=== PATIENT | male | born 1960 | race Caucasian/White ===

== ENCOUNTER 2017-02-21 12:04 | Emergency (ER) | payer OTHER ==
[~2017-02-21] VITALS: Ht 182.9 cm; Wt 90.7 kg
[2017-02-21 12:08] VITALS: BP 143/84
[2017-02-21] MEDS ORDERED: AMOXICILLIN500 M3 PO (12:34)
[2017-02-21] MEDS ORDERED: BACTRIM DS TAB1 EACH PO (12:34)
--- NOTE | 2017-02-21 12:35 | ED UPPER/LOWER EXTREMITY COMPL ---
History of Present Illness General Chief Complaint: Skin Rash/ Abcess Stated Complaint: REDNESS/SWELLING TO RT ELBOW Source: patient Exam Limitations: no limitations Vital Signs & Intake/Output Vital Signs & Intake/Output Vital Signs Date Time Temp Pulse Resp B/P B/P Pulse O2 O2 Flow FiO2 Mean Ox Delivery Rate 02/21 1208 97.1 87 20 143/84 96 Room Air Reconcile Medications Amoxicillin 500 MG TABLET 1 TAB PO TID cellulitis Atorvastatin Calcium 20 MG TABLET 1 TAB PO DAILY CHOL (Reported) Carisoprodol 350 MG TABLET 1 TAB PO 4XDP PAIN (Reported) Prednisone 5 MG TABLET 1 TAB PO DAILY INFLAMMATION (Reported) Sulfamethoxazole/Trimethoprim (Bactrim Ds Tablet) 800 MG-160 MG TABLET 1 TAB PO BID cellulitis Triage Note: PT TO ED C/O RIGHT ELBOW PAIN, SWELLING/REDNESS. NOTICED WEDNESDAY. PT'S YOLI A LINE AROUND SITE, ON WEDNESDAY AND THIS AM NOTICED THE SWELLING AND REDNESS WAS SPREADING. DENIES FEVERS, AFEBRILE IN TRIAGE. RIGHT ELBOW WARM TO TOUCH. Triage Nurses Notes Reviewed? yes Onset: Abrupt Duration: day(s): (3), constant, continues in ED Timing: recent history Severity: mild, moderate Pain/Injury Location: Right: Elbow. No Modifying Factors: none HPI: 56-year-old male comes into emergency room for further evaluation of swelling and redness to his right arm. Symptoms of a going on for past 3 days getting progressively worse. Denies any fever chills vomiting. Patient reports that he does go on the [place] quite a bit but does not remember any recent tick bites. Nothing seems to make the symptoms better or worse. Denies any other associated symptoms. Denies any prior. (JORDYN LUCERO) Allergies Coded Allergies: NO KNOWN ALLERGIES (02/21/17) (STEPHANIE CANDELARIA,SHONA Jacobo) Past History Travel History Traveled to [place] past 21 day No Medical History Any Pertinent Medical History? see below for history Cardiovascular: hypertension, hyperlipidemia Respiratory: asthma Tetanus Vaccine: Surgical History Surgical History: non-contributory Psychosocial History What is your primary language Yi Tobacco Use: Current Daily Use Daily Tobacco Use Amount/Type: => 5 Cigarettes daily ETOH Use: denies use Illicit Drug Use: denies illicit drug use Family History Hx Contributory? No (JORDYN LUCERO) Review of Systems Review of Systems Constitutional: Reports: no symptoms. EENTM: Reports: no symptoms. Respiratory: Reports: no symptoms. Cardiovascular: Reports: no symptoms. Gastrointestinal/Abdominal: Reports: no symptoms. Genitourinary: Reports: no symptoms. Musculoskeletal: Reports: no symptoms. Skin: Reports: see HPI. Neurological/Psychological: Reports: no symptoms. Hematologic/Endocrine: Reports: no symptoms. Immunological: Reports: no symptoms. All Other Systems: Reviewed and Negative (JORDYN LUCERO) Physical Exam Physical Exam General Appearance: well developed/nourished, mild distress Head: atraumatic Eyes: Bilateral: normal appearance. Ears, Nose, Throat: normal ENT inspection, hearing grossly normal Neck: normal inspection Back: normal inspection Elbow Right: erythema, well demarcated borders, slightly raised, warm to touch,9 x 4 cm, full range of motion of right elbow, radial pulse 2+, boil off worker strength intact, sensation intact Skin: intact, normal color, warm/dry Lymphatic: no anterior cervical eduardo (JORDYN LUCERO) Progress Differential Diagnosis: cellulitis, CHF, compartment syndrome, dislocation, DVT, fracture, septic arthritis, sprain, tendon injury Plan of Care: Current Medications Sig/Earl Start time Last Medication Dose Stop Time Status Admin Amoxicillin 500 MG ONCE ONE 02/21 1245 UNVr (Amoxil) 02/21 1246 Trimethoprim/ 1 TAB ONCE ONE 02/21 1245 UNVr Sulfamethoxazole 02/21 1246 (Bactrim DS) Departure Departure Disposition: HOME OR SELF CARE Condition: Stable Clinical Impression Primary Impression: Cellulitis of right arm Referrals: DEBBY CANDELARIA,LEONOR Wilder (PCP/Family) Additional Instructions: Take Bactrim and amoxicillin as prescribed. Warm compresses. Return if any concerns worsening symptoms. Please go over all results of today's visit with your primary care doctor. Contact your primary care doctor to let them know you were here in the emergency room. There may be nonspecific findings which may not be related to your visit today here in the emergency room but may require further evaluation and chronic monitoring by your primary care doctor. If you had a laceration today the chance of foreign body always remains. You should follow-up with your primary care doctor for recheck in 3-5 days for a wound check. If you had an x-ray done there is a chance that a fracture could have been missed on initial read and you should follow-up with your primary care doctor for repeat x-rays if symptoms persist. If your blood pressure was elevated here in the emergency room please have rechecked by her primary care doctor within the next 48 hours by your primary care doctor. If you were prescribed a narcotic here in the emergency room or any type of controlled substances you're not allowed to drive while taking this medication or operate any type of heavy machinery. Narcotics can make you feel lightheaded dizziness nausea and can cause constipation. You may need to [employer] a stool softener. Thank you for choosing [facility] emergency room. Please return to the emergency room immediately if you have any other concerns worsening of symptoms. Departure Forms: Customer Survey General Discharge Information Prescriptions: Current Visit Scripts Sulfamethoxazole/Trimethoprim (Bactrim Ds Tablet) 1 TAB PO BID #20 TAB Amoxicillin 1 TAB PO TID #30 TAB (JORDYN LUCERO) PA/ARTILLERY OR [employer] Co-Sign Statement Statement: ED Attending supervision documentation- [] I saw and evaluated the patient. I have also reviewed all the pertinent lab results and diagnostic results. I agree with the findings and the plan of care as documented in the PA's/ARTILLERY OR [employer]'s documentation. [X] I have reviewed the ED Record and agree with the PA's/ARTILLERY OR [employer]'s documentation. [] Additions or exceptions (if any) to the PAs/ARTILLERY OR [employer]ER's note and plan are summarized below: [] (STEPHANIE CANDELARIA,SHONA Jacobo)
[2017-02-21] MEDS ORDERED: PREDNISONE5 M1 PO (12:46)
[2017-02-21] MEDS ORDERED: CARISOPRODOL350 M1 PO (12:47)
[2017-02-21] MEDS ORDERED: ATORVASTATIN CA20 M1 PO (12:47)
== END 2017-02-21 12:51 ==
LOC: ERH 12:04
DX: L03.113 Cellulitis of right upper limb (principal)